=== PATIENT | female | born 1965 | race Caucasian/White ===

== ENCOUNTER 2016-05-15 12:33 | Emergency (ER) | payer OTHER ==
[~2016-05-15] VITALS: Ht 152.4 cm; Wt 69.9 kg
[~2016-05-15 12:33] MED LIST: LEVAQUIN500 MG PO
[2016-05-15 12:49] VITALS: BP 149/83
[2016-05-15] MEDS ORDERED: VASOTEC10 MG PO (12:52)
--- NOTE | 2016-05-15 12:55 | NUR ---
Patient ambulated to bed 08.
--- NOTE | 2016-05-15 12:59 | NUR ---
Dr. Still evaluating patient at bedside.
--- NOTE | 2016-05-15 13:03 | NUR ---
51/F presents to ED with c/o dizziness starting this morning accompanied with nausea. Pt denies loss of conciousness. Patient also c/o right wrist pain but denies any trauma. Patient is AOX4, ambulatory with steady gait. VSS. Son is at bedside.
[2016-05-15] MEDS ORDERED: MECLIZINE 25 MG TAB PO ONE (13:05)
[2016-05-15] MEDS ORDERED: ONDANSETRON 4 MG ODT PO ONE (13:05)
--- NOTE | 2016-05-15 13:09 | NUR ---
Patient going to CT/XRAY via wheelchair per tech.
--- NOTE | 2016-05-15 13:10 | NUR ---
Ngozi roblesgriselda in ED - 05/15/16 at 1430 by COLETTE Chart checked and completed. The patient's care was reviewed and supervised by Rosanna Haider RN.
--- NOTE | 2016-05-15 13:23 | NUR ---
Patient returned from x-ray and placed back into bed 8.
--- NOTE | 2016-05-15 13:58 | NUR ---
Patient appears to be resting comfortably in bed. Vital Signs within normal limits. Respirations even and unlabored.
--- NOTE | 2016-05-15 14:02 | NUR ---
Dr. Still re-evaluating patient at bedside.
[2016-05-15 14:15] VITALS: BP 123/74
--- NOTE | 2016-05-15 14:20 | NUR ---
Chart checked and completed. The patient's care was reviewed and supervised by Rosanna Haider RN.
--- NOTE | 2016-05-15 14:20 | NUR ---
Patient discharged with v/s stable. Written and verbal after care instructions given and explained. Patient alert, oriented and verbalized understanding of instructions. Ambulatory with steady gait. All questions addressed prior to discharge. ID band removed. Patient advised to follow up with PMD. Rx of ZOFRAN,MECLIZINE,MOTRIN given. Patient educated on indication of medication including possible reaction and side effects. Opportunity to ask questions provided and answered.
== END 2016-05-15 14:20 | disposition home or self-care (01) ==
LOC: MED 12:33
DX: R55 Syncope and collapse (principal); R51 Headache; M25.531 Pain in right wrist; I10 Essential (primary) hypertension
CPT/HCPCS: 36415; 70450; 73110; 80053; 84484; 85025; 93005; 99285; J8597; S0119

== ENCOUNTER 2017-01-26 21:22 | Emergency (ER) | payer OTHER ==
[~2017-01-26] VITALS: Ht 152.4 cm; Wt 68.7 kg
[~2017-01-26 21:22] MED LIST changes: -LEVAQUIN500 MG PO; +VAS10 PO
[2017-01-26 21:34] VITALS: BP 157/89
--- NOTE | 2017-01-26 21:37 | NUR ---
PT RETURNED TO LOBBY
--- NOTE | 2017-01-26 22:10 | NUR ---
MADE AWARE PT IN LOBBY
--- NOTE | 2017-01-26 23:11 | NUR ---
PATIENT IS A 51 Y/O FEMALE WHO PRESENTS TO THE ED C/O RASH AND ITCHINESS. PT STATES, "I HAVE HAD THIS RASH FOR ABOUT 10 DAYS AND THE MEDICINE I AM TAKING ISN'T HELPING." PT REPORTS 3/10 ITCHING PAIN ON THE BODY. PT DENIES CP, SOB, N/V/D. PT AAOX4, RR EVEN/UNLABORED. PT REPOSITIONED FOR COMFORT, BED IN LOWEST POSITION. ER MD DR. ALBA NOTIFIED. WILL CONTINUE TO MONITOR. Addendum: 01/26/17 at 2319 by MEDDCV PATIENT IS A 51 Y/O FEMALE WHO PRESENTS TO THE ED C/O RASH AND ITCHINESS. PT STATES, "I HAVE HAD THIS RASH FOR ABOUT 10 DAYS AND THE MEDICINE I AM TAKING ISN'T HELPING." PT REPORTS 3/10 ITCHING PAIN ON THE BODY AND EAR PAIN. PT DENIES CP, SOB, N/V/D. PT AAOX4, RR EVEN/UNLABORED. PT REPOSITIONED FOR COMFORT, BED IN LOWEST POSITION. JAMSHID ALBA NOTIFIED. WILL CONTINUE TO MONITOR.
[2017-01-26] MEDS ORDERED: IBUPROFEN 800 MG TAB PO ONE (23:25)
[2017-01-26] MEDS ORDERED: diphenhydrAMINE 50 MG CAP PO ONE (23:25)
[2017-01-26 23:30] LABS: APPEARANCE,URINE CLEAR (CLEAR); BILIRUBIN,URINE NEGATIVE (NEGATIVE); BLOOD, URINE NEGATIVE (NEGATIVE); COLOR,URINE YELLOW (YELLOW); LEUKOCYTE ESTERASE ,URINE NEGATIVE (NEGATIVE); NITRITE, URINE NEGATIVE (NEGATIVE); PH,URINE 5.5 (5.0-9.0); UGLUCOSE NEGATIVE (NEGATIVE)
--- NOTE | 2017-01-26 23:35 | NUR ---
PATIENT MOVED TO ER BED 3.
--- NOTE | 2017-01-26 23:36 | NUR ---
Pt report given to DESTINY MENDEZ. Transfer of care at this time.
[2017-01-27 00:02] LABS: HEMATOCRIT 41.4 % (36-48); HEMOGLOBIN 13.7 g/dL (12.0-16.0); MEAN CORPUSCULAR HEMOGLOBIN 28 pg (27-31); MEAN CORPUSCULAR HGB CONC 33 g/dL (33-37); MEAN CORPUSCULAR VOLUME 86 fL (80-94); PLATELET COUNT (AUTO) 180 K/uL (140-450); RED BLOOD CELL COUNT(AUTO) 4.83 MIL/uL (4.20-5.40); RED CELL DISTRIBUTION WIDTH 12.8 % (11.6-13.7); WHITE BLOOD COUNT (AUTO) 8.8 K/uL (4.8-10.8)
[2017-01-27 00:13] LABS: ALBUMIN 4.1 g/dL (3.4-5.0); ANION GAP 13.3 (8-16); CARBON DIOXIDE 28.7 mmol/L (21-32); CREATININE 0.7 mg/dL (0.6-1.3); TOTAL BILIRUBIN 0.5 mg/dL (0.0-1.0)
[2017-01-27 00:17] LABS: EOSINOPHILS % (MANUAL) 2 % (0-4); LYMPHOCYTES % (MANUAL) 46 % (20-46); MONOCYTES % (MANUAL) 5 % (5-12)
[2017-01-27 01:06] VITALS: BP 119/72
--- NOTE | 2017-01-27 01:07 | NUR ---
Patient discharged with v/s stable. Written and verbal after care instructions given and explained. Patient alert, oriented and verbalized understanding of instructions. Ambulatory with steady gait. All questions addressed prior to discharge. ID band removed. Patient advised to follow up with PMD. Rx of prednisone 20mg given. Patient educated on indication of medication including possible reaction and side effects. Opportunity to ask questions provided and answered.
[2017-02-02 08:38] LABS: CHLAMYDIA TRACHOMATIS AMP DNA Negative (Negative)
== END 2017-01-27 01:06 | disposition home or self-care (01) ==
LOC: MED 21:22
DX: R21 Rash and other nonspecific skin eruption (principal); R51 Headache; R35.0 Frequency of micturition; I10 Essential (primary) hypertension; E78.00 Pure hypercholesterolemia, unspecified; Z79.899 Other long term (current) drug therapy
CPT/HCPCS: 36415; 80053; 81003; 81025; 85025; 85651; 86140; 87210; 99284; Q0163; 87491

== ENCOUNTER 2018-04-04 11:20 | Emergency (ER) | payer OTHER ==
[~2018-04-04] VITALS: Ht 152.4 cm; Wt 69.1 kg
[~2018-04-04 11:20] MED LIST changes: +ENAL-197 PO; -VAS10 PO
--- NOTE | 2018-04-04 11:31 | NUR ---
PT AMBULATES TO BED 3
[2018-04-04 11:33] VITALS: BP 137/70
--- NOTE | 2018-04-04 11:43 | NUR ---
BIB FAMILY WITH C/O COUGH, RHINORRHEA, HEAD ACHE, EPIGASTRIC PAIN AND FEVER SINCE WEDNESDAY. ORAL TEMP 98.2. TOOK TYLENOL AT 1000 THIS MORNING. CURRENTLY TAKING AMOXICILLIN X 6 DAYS FOR BL EAR INFECTION. NVD, EAR ACHE. SKIN IS INTACT, PINK/WARM/DRY; AAOX4, PERRL, WITH EVEN AND STEADY GAIT; LUNGS CLEAR BL, BREATHING UNLABORED; HR EVEN AND REGULAR, BL PERIPHERAL PULSES PRESENT; BS ACTIVE X4, NO TENDERNESS TO PALPATION, NO HEPATOSPLENOMEGALLY PALPATED, RESONANT TO PERCUSSION; PT DENIES ANY FEVER, CP, SOB, OR COUGH AT THIS TIME; PT STATES 8/10 PAIN AT THIS TIME; VSS; PATIENT POSITIONED FOR COMFORT; HOB ELEVATED; BEDRAILS UP X2; BED DOWN. HX; EAR INFECTION RX; AMOXICILLIN
[2018-04-04] MEDS ORDERED: KETOROLAC 60 MG/2 ML VIAL IM ONE (12:25)
[2018-04-04] MEDS ORDERED: hydrOXYzine HCL 25 MG TAB PO ONE (12:25)
[2018-04-04] MEDS ORDERED: ALBUTEROL SULFATE/IPRATROPIU 3 ML SOL IH ONE (12:25)
--- NOTE | 2018-04-04 12:47 | NUR ---
CALLED RT REGARDING BREATHING TREATMENT.
--- NOTE | 2018-04-04 12:53 | NUR ---
[facility] THERAPY AND [id number] DRUG GIVEN ORDERED
[2018-04-04 14:10] VITALS: BP 130/75
--- NOTE | 2018-04-04 14:10 | NUR ---
Patient discharged with v/s stable. Written and verbal after care instructions given and explained. Patient alert, oriented and verbalized understanding of instructions. Ambulatory with steady gait. All questions addressed prior to discharge. ID band removed. Patient advised to follow up with PMD. Rx of PREDNISONE 20MG, PROMETHAZINE DM 6.25MG-15MG/5ML AND LEVAQUIN 500MG given. Patient educated on indication of medication including possible reaction and side effects. Opportunity to ask questions provided and answered.
== END 2018-04-04 14:10 | disposition home or self-care (01) ==
LOC: MED 11:20
DX: R05 Cough (principal); R09.81 Nasal congestion; J34.89 Other specified disorders of nose and nasal sinuses; R11.10 Vomiting, unspecified; R10.13 Epigastric pain; R19.7 Diarrhea, unspecified; R51 Headache; I10 Essential (primary) hypertension; Z79.899 Other long term (current) drug therapy
CPT/HCPCS: 87804; 94640; 96372; 99283; J1885; J7620; 36415

== ENCOUNTER 2018-08-18 19:13 | Emergency (ER) | payer OTHER ==
[~2018-08-18] VITALS: Ht 152.4 cm; Wt 74.4 kg
[2018-08-18 19:18] VITALS: BP 158/80
--- NOTE | 2018-08-18 19:20 | NUR ---
TO LOBBY A/W BED AMBULATORY
[2018-08-18] MEDS ORDERED: ACETAMINOPHEN EXTRA STRENGTH 500 MG TAB PO ONE (19:25)
--- NOTE | 2018-08-18 19:29 | NUR ---
Patient ambulated to bed 5 with family. RN evaluating patient at bedside.
--- NOTE | 2018-08-18 19:30 | NUR ---
53/F PRESENTS TO ED, C/O HEADACHE, X1 YEARS; REPORTS WORSENING TONIGHT. PT REPORTS NAUSEA. DENIES VOMITING. PT WITH FEVER, WAS GIVEN TYLENOL IN TRIAGE. TEMP 100.7, HR 120 AT THIS TIME, COOLING MEASURES INITIATED. AOX4, PERRLA [place], SKIN NORMAL HOT AND DRY, RR EVEN AND UNLABORED. DENIES HX OR RX. OTC TYLENOL WITH NO RELIEF.
[2018-08-18] MEDS ORDERED: KETOROLAC 30 MG/ML VIAL IVP ONE (19:35)
[2018-08-18] MEDS ORDERED: NACL 0.9% 1,000 ML IV ONE (19:35)
[2018-08-18 20:40] LABS: APPEARANCE,URINE CLEAR (CLEAR); BILIRUBIN,URINE NEGATIVE (NEGATIVE); BLOOD, URINE NEGATIVE (NEGATIVE); COLOR,URINE YELLOW (YELLOW); LEUKOCYTE ESTERASE ,URINE TRACE (NEGATIVE); NITRITE, URINE NEGATIVE (NEGATIVE); PH,URINE 7.5 (5.0-9.0); UGLUCOSE NEGATIVE (NEGATIVE)
--- NOTE | 2018-08-18 21:02 | NUR ---
PT LAYING IN BED, AND SON AT BEDSIDE. RR EVEN AND UNLABORED. VS NOTED, TEMP 99.4, HR 112. REPORTS IMPROVEMENT IN PAIN, 6/10 HEADACHE AND L EAR THROBBING AT THIS TIME. ALL NEEDS MET.
[2018-08-18 21:35] VITALS: BP 141/72
--- NOTE | 2018-08-18 21:35 | NUR ---
Patient discharged with v/s stable. Written and verbal after care instructions given and explained. Patient alert, oriented and verbalized understanding of instructions. Ambulatory with steady gait. All questions addressed prior to discharge. ID band removed. Patient advised to follow up with PMD. Rx of MOTRIN, ZOFRAN, NORCO given. Patient educated on indication of medication including possible reaction and side effects. Opportunity to ask questions provided and answered.
== END 2018-08-18 21:35 | disposition home or self-care (01) ==
LOC: MED 19:13
DX: R51 Headache (principal); H92.02 Otalgia, left ear; R50.9 Fever, unspecified; M54.2 Cervicalgia; M79.10 Myalgia, unspecified site; R11.0 Nausea; I10 Essential (primary) hypertension
CPT/HCPCS: 81003; 81025; 96361; 96374; 99283; J1885; J7030